=== PATIENT | female | born 1935 | race Caucasian/White ===

== ENCOUNTER 2018-09-25 13:01 | Inpatient (IN) | payer OTHER ==
[2018-09-25] MEDS: IPRATROPIUM (NEB) 0.5 MG/2.5 ML AMP INH (13:22)
[2018-09-25] MEDS: ALBUTEROL 0.5% (NEB) 2.5 MG/0.5 ML AMP INH (13:22)
[2018-09-25 13:30] LABS: ADD MAN DIFF? NO
[2018-09-25 13:31] LABS: ABNORMAL IP MESSAGE 1; BASOPHILS % 0.2 % (0.0-2.0); HEMATOCRIT 45.2 % (37.0-47.0); HEMOGLOBIN 14.5 g/dl (12.0-16.0); LYMPHOCYTES # 0.5 10^3/ul (0.8-2.9); LYMPHOCYTES % 3.5 % (15.0-51.0); MEAN CORPUSCULAR HEMOGLOBIN 29.7 pg (29.0-33.0); MEAN CORPUSCULAR HGB CONC 32.1 g/dl (32.0-37.0); MEAN CORPUSCULAR VOLUME 92.4 fl (82.0-101.0); MEAN PLATELET VOLUME 11.1 fl (7.4-10.4); MONOCYTE # 1.1 10^3/ul (0.3-0.9); MONOCYTES % 7.8 % (0.0-11.0); NEUTROPHIL # 12.6 10^3/ul (1.6-7.5); NEUTROPHILS % 87.5 % (39.0-77.0); PLATELET COUNT 167 10^3/UL (140-415); RED BLOOD COUNT 4.89 10^6/ul (4.20-5.40); RED CELL DISTRIBUTION WIDTH 14.1 % (11.5-14.5)
[2018-09-25 13:31] LABS: WHITE BLOOD COUNT 14.4 10^3/ul (4.8-10.8)
[2018-09-25 13:32] LABS: POSITIVE DIFF @See below
[2018-09-25] MEDS: CEFTRIAXONE 1 GM/50 ML (PMX) 50 ML IVPB (13:41)
[2018-09-25] MEDS: ACETAMINOPHEN 325 MG TAB PO (13:41)
[2018-09-25] MEDS: DEXAMETHASONE 10 MG/ML 1 ML INJ IV (13:41)
[2018-09-25] MEDS: SODIUM CHLORIDE 0.9% 1L BAG IV* (13:44)
[2018-09-25] MEDS: MAGNESIUM SULFATE 2 GM/50 ML 50 ML IVPB (13:47)
[2018-09-25] MEDS: AZITHROMYCIN 500MG/NS (PMX) 250 ML IV (13:56)
[2018-09-25 14:03] LABS: ANION GAP 8 (5-13); BLOOD UREA NITROGEN 17 mg/dl (7-20); CALCIUM 9.6 mg/dl (8.4-10.2); CARBON DIOXIDE 25 mmol/L (21-31); CHLORIDE 104 mmol/L (97-110); CREATININE 0.67 mg/dl (0.44-1.00); GLUCOSE 116 mg/dl (70-220); POTASSIUM 3.8 mmol/L (3.5-5.1); SODIUM 137 mmol/L (135-144)
[2018-09-25 14:14] LABS: TROPONIN-I 0.081 ng/ml (0.000-0.120)
[2018-09-25 15:15] LABS: URINE BLOOD (Dip) POC 1+ (NEGATIVE); URINE GLUCOSE (Dip) POC Negative (NEGATIVE); URINE KETONES (Dip) POC 1+ (NEGATIVE); URINE LEUKOCYTE EST (Dip) POC Negative (NEGATIVE); URINE NITRITE (Dip) POC Negative (NEGATIVE); URINE TOTAL PROTEIN POC 2+ (NEGATIVE)
[2018-09-25] MEDS ORDERED: ACETAMINOPHEN 325 MG TAB PO (15:30)
[2018-09-25] MEDS ORDERED: ONDANSETRON 4 MG INJ IV (15:30)
[2018-09-25 16:03] LABS: LACTIC ACID 3.1 mmol/L (0.5-2.0)
[2018-09-25] MEDS: SOD CHLORIDE 0.9% 1,000 ML IV (16:33)
[2018-09-25] MEDS: ALBUTEROL/IPRATROPIUM (NEB) 3 ML AMP HHN ×2 (17:00→21:15)
[2018-09-25] MEDS ORDERED: NACL 0.9% 3 ML SYG IV (17:00)
[2018-09-25] MEDS ORDERED: VANCOMYCIN IV PER PHARMACY XX (17:00)
[2018-09-25 19:44] LABS: LACTIC ACID 4.5 mmol/L (0.5-2.0)
[2018-09-25] MEDS: VANCOMYCIN HCL 1.25 GM in SOD CHLORIDE 0.9% 250 ML IVPB (21:26)
[2018-09-25] MEDS: PIPER-TAZO 3.375 GM IV (PMX) 100 ML IVPB (21:30)
[2018-09-25] MEDS: SOD CHLORIDE 0.9% 500 ML IV (23:27)
[2018-09-26] MEDS: ALBUTEROL/IPRATROPIUM (NEB) 3 ML AMP HHN ×5 (01:51→16:16)
[2018-09-26 05:43] LABS: ADD MAN DIFF? NO
[2018-09-26] MEDS: PIPER-TAZO 3.375 GM IV (PMX) 100 ML IVPB ×2 (05:43→14:42)
[2018-09-26 05:48] LABS: ABNORMAL IP MESSAGE 1; BASOPHILS % 0.2 % (0.0-2.0); HEMATOCRIT 38.4 % (37.0-47.0); HEMOGLOBIN 12.3 g/dl (12.0-16.0); LYMPHOCYTES # 0.6 10^3/ul (0.8-2.9); LYMPHOCYTES % 4.7 % (15.0-51.0); MEAN CORPUSCULAR HEMOGLOBIN 29.9 pg (29.0-33.0); MEAN CORPUSCULAR VOLUME 93.2 fl (82.0-101.0); MEAN PLATELET VOLUME 11.2 fl (7.4-10.4); MONOCYTE # 0.7 10^3/ul (0.3-0.9); MONOCYTES % 5.6 % (0.0-11.0); NEUTROPHIL # 10.8 10^3/ul (1.6-7.5); NEUTROPHILS % 88.8 % (39.0-77.0); PLATELET COUNT 144 10^3/UL (140-415); RED BLOOD COUNT 4.12 10^6/ul (4.20-5.40); RED CELL DISTRIBUTION WIDTH 14.2 % (11.5-14.5)
[2018-09-26 05:48] LABS: WHITE BLOOD COUNT 12.2 10^3/ul (4.8-10.8)
[2018-09-26 05:49] LABS: POSITIVE DIFF @See below
[2018-09-26 06:04] LABS: LACTIC ACID 1.3 mmol/L (0.5-2.0)
[2018-09-26 06:27] LABS: ALANINE AMINOTRANSFERASE 51 IU/L (13-69); ALKALINE PHOSPHATASE 54 IU/L (42-121); ANION GAP 5 (5-13); ASPARTATE AMINO TRANSFERASE 63 IU/L (15-46); BILIRUBIN,INDIRECT 0.7 mg/dl (0-1.1); BILIRUBIN,TOTAL 0.7 mg/dl (0.2-1.3); BLOOD UREA NITROGEN 16 mg/dl (7-20); CALCIUM 8.4 mg/dl (8.4-10.2); CARBON DIOXIDE 25 mmol/L (21-31); CHLORIDE 112 mmol/L (97-110); CREATININE 0.48 mg/dl (0.44-1.00); GLUCOSE 179 mg/dl (70-220); POTASSIUM 3.8 mmol/L (3.5-5.1); SODIUM 142 mmol/L (135-144); TOTAL PROTEIN 6.3 g/dl (6.1-8.1)
[2018-09-26 07:23] LABS: HEMOGLOBIN A1C 5.1 % (0-5.9)
[2018-09-26] MEDS: ENOXAPARIN 30 MG/0.3 ML SYG SC (08:51)
[2018-09-26 12:03] LABS: AADO2 Arterial 50.8 mmHg (7.0-24.0); Allen Test ACCEPTAB; Arterial Base Excess -2.9 mmol/L (-3.0-3); Arterial COHb 0.5 % (0.0-3.0); Arterial Fraction of Oxyhgb 89.4 % (93.0-99.0); Arterial HCO3 21.7 mmol/L (22.0-26.0); Arterial MetHb 0.2 % (0.0-1.5); Arterial pCO2 37.4 mmhg (35-45); Site Right Radial
[2018-09-26 13:10] LABS: MODE ROOM AIR
[2018-09-26] MEDS ORDERED: VANCOMYCIN 750 MG (PMX) 250 ML IVPB (20:00)
== END 2018-09-26 18:34 | disposition home or self-care (01) | DRG 871 ==
LOC: E/R 13:01 → 6WM 15:12
PROVIDERS: Internal Medicine
DX: A41.9 Sepsis, unspecified organism (principal); J18.9 Pneumonia, unspecified organism; J96.11 Chronic respiratory failure with hypoxia; J44.9 Chronic obstructive pulmonary disease, unspecified; Z87.891 Personal history of nicotine dependence
CPT/HCPCS: 36415; 36600; 71045; 80048; 80053; 81003; 82803; 83036; 83605; 84484; 85025; 87040-91; 87400; 93005; 94640; 94644; 96374; 96375; 97162; 99285-25